=== PATIENT | female | born 1960 | race American Indian/Alaskan Native ===

== ENCOUNTER 2020-04-22 13:58 | Outpatient (REF) | payer BC, SELFPAY | END 2020-04-22 13:59 | disposition home or self-care (01) | LOC: HO.LAB 13:58 | PROVIDERS: Visit Provider Internal Medicine | DX: Z20.828 Contact with and (suspected) exposure to other viral communicable diseases (principal) | CPT/HCPCS: C9803; U0003 ==

== ENCOUNTER 2024-05-28 13:56 | Outpatient (RCR) | payer BC, SELFPAY | END 2024-05-28 15:42 | disposition home or self-care (01) | LOC: HO.PT 13:56 | PROVIDERS: PCP Nurse Practitioner Family; Visit Provider Nurse Practitioner Family | DX: T14.8XXA Other injury of unspecified body region, initial encounter (principal) | CPT/HCPCS: 97110; 97161 ==